=== PATIENT | male | born 1940 | race Caucasian/White ===

== ENCOUNTER → 2018-09-01 | Outpatient (CLI) | payer MEDICARE, BC ==
[~2018-09-01] MED LIST: ASPI-496 PO; ATOR10TA PO; OXYC1TAB8 PO; PANT40TA3 PO; POTA15TA9 PO; TERA10CA3 PO
[2018-09-01 12:11] LABS: BASOPHILS # (AUTO) 0.04 x10^3/uL (0-0.1); BASOPHILS % (AUTO) 0 % (0-1); EOSINOPHILS # (AUTO) 0.15 x10^3/uL (0-0.4); EOSINOPHILS % (AUTO) 2 % (1-7); LYMPHOCYTES # (AUTO) 0.98 x10^3/uL (1-3.4); LYMPHOCYTES % (AUTO) 12 % (22-44); MD NO; MEAN CORPUSCULAR HEMOGLOBIN 31.1 pg (27.5-34.5); MEAN CORPUSCULAR HGB CONC 34.1 g/dL (33.2-36.2); MEAN PLATELET VOLUME 10.1 fL (7.4-10.4); MONOCYTES # (AUTO) 0.61 x10^3/uL (0.2-0.8); MONOCYTES % (AUTO) 7 % (2-9); NEUTROPHILS # (AUTO) 6.54 x10^3/uL (1.8-6.8); NEUTROPHILS % (AUTO) 79 % (42-75); PLATELET COUNT 180 x10^3/uL (130-400); RED BLOOD COUNT 4.78 x10^6/uL (4.38-5.82); RED CELL DISTRIBUTION WIDTH 14.8 % (9.4-14.8)
== END | disposition home or self-care (01) ==
LOC: STAR 10:58
PROVIDERS: ATTEND Orthopaedic Surgery
DX: Z01.818 Encounter for other preprocedural examination (principal); M17.11 Unilateral primary osteoarthritis, right knee; M25.561 Pain in right knee
CPT/HCPCS: 36415; 85025; 87081

== ENCOUNTER 2018-09-12 05:45 | Inpatient (IN) | payer MEDICARE, BC ==
[~2018-09-12] VITALS: Ht 177.8 cm; Wt 111.0 kg
[2018-09-12] MEDS ORDERED: SUCCINYLCHOLINE 20 MG/ML, 10ML ONE (06:23)
[2018-09-12] MEDS ORDERED: MIDAZOLAM 1 MG/ML, 2ML ONE (06:23)
[2018-09-12] MEDS ORDERED: FENTANYL PF 100 MCG/2ML ONE ×2 (06:23→07:34)
[2018-09-12] MEDS ORDERED: LIDOCAINE-MPF 2% ,5ML ONE (06:24)
[2018-09-12] MEDS ORDERED: DEXAMETHASONE 4 MG/ML, 5ML ONE (06:24)
[2018-09-12] MEDS ORDERED: BUPIVACAINE/PF 0.5% ONE (06:24)
[2018-09-12] MEDS ORDERED: EPINEPHRINE 1 MG/ML, 1ML ONE ×2 (06:24→06:54)
[2018-09-12] MEDS ORDERED: ONDANSETRON 2MG/ML, 2ML ONE (06:24)
[2018-09-12] MEDS ORDERED: SODIUM CHLORIDE 0.9% PF 10ML ONE (06:24)
[2018-09-12] MEDS ORDERED: CEFAZOLIN 1,000 MG ONE ×2 (06:24)
[2018-09-12 06:35] VITALS: BP 136/81
[2018-09-12] MEDS: LACTATED RINGERS 1,000 ML IV SCH ×2 (06:38→14:02)
[2018-09-12] MEDS ORDERED: ROPIvacaine/PF 0.2%, 20 ML ONE (06:53)
[2018-09-12] MEDS ORDERED: TRANEXAMIC ACID 100 MG/ML, 10ML ONE (06:53)
[2018-09-12] MEDS ORDERED: KETOROLAC 60 MG/2 ML ONE (06:53)
[2018-09-12] MEDS ORDERED: SODIUM CHLORIDE 0.9% 100 ML ONE (06:54)
[2018-09-12] MEDS ORDERED: VANCOMYCIN 1,000 MG ONE (06:54)
[2018-09-12] MEDS ORDERED: ACETAMINOPHEN 500 MG TABLET PO ONE (07:00)
[2018-09-12] MEDS ORDERED: ONDANSETRON ODT 8 MG PO ONE (07:00)
[2018-09-12] MEDS ORDERED: PROPOFOL 10 MG/ML, 20ML ONE (07:10)
[2018-09-12] MEDS ORDERED: OXYcodone 5 MG/5 ML ORAL.SOL UDC PO PRN (07:30)
[2018-09-12] MEDS ORDERED: LABETALOL 5MG/ML, 20ML IV PRN (07:30)
[2018-09-12] MEDS ORDERED: hydrALAzine 20 MG/ML, 1ML IV PRN (07:30)
[2018-09-12] MEDS ORDERED: LORazepam 2 MG/ML, 1ML IVPush PRN (07:30)
[2018-09-12] MEDS ORDERED: FENTANYL PF 100 MCG/2ML IV PRN (07:30)
[2018-09-12] MEDS ORDERED: METOCLOPRAMIDE 5 MG/ML, 2ML IV PRN (07:30)
[2018-09-12] MEDS: D5%-0.45% NACL 1,000 ML IV SCH ×2 (08:39→16:28)
[2018-09-12] MEDS ORDERED: HYDROmorphone 1 MG/ML, 1ML AMP ONE ×2 (08:41→09:07)
[2018-09-12] MEDS: HYDROmorphone 2 MG/ML, 1ML IVPush PRN ×5 (08:45→09:25)
[2018-09-12] MEDS ORDERED: OXYcodone 5 MG/5 ML ORAL.SOL UDC ONE (08:52)
[2018-09-12] MEDS ORDERED: ZOLPIDEM 5MG TABLET PO PRN (09:00)
[2018-09-12] MEDS: DOCUSATE 100 MG CAPSULE PO SCH ×2 (09:00→22:28)
[2018-09-12] MEDS ORDERED: PROMETHAZINE 25 MG/ML, 1ML IM PRN (09:00)
[2018-09-12] MEDS ORDERED: BISACODYL 10 MG SUPP PR PRN (09:00)
[2018-09-12] MEDS ORDERED: ONDANSETRON 2MG/ML, 2ML IV PRN (09:00)
[2018-09-12] MEDS: MULTIVITAMINS/MINERALS TABLET PO SCH (09:00)
[2018-09-12] MEDS ORDERED: MAGNESIUM HYDROXIDE 8%, 30ML UDC PO PRN (09:00)
[2018-09-12] MEDS ORDERED: DIAZEPAM 5 MG TABLET PO PRN (09:00)
[2018-09-12] MEDS ORDERED: DIPHENHYDRAMINE 50 MG CAPSULE PO PRN (09:00)
[2018-09-12] MEDS ORDERED: ALUMINUM/MAG/SIMETHICONE 30 ML UDC PO PRN (09:00)
[2018-09-12] MEDS: POTASSIUM CITRATE 15 MEQ PO SCH ×2 (09:00→21:00)
[2018-09-12] MEDS ORDERED: SENNA/DOCUSATE TABLET PO PRN (09:00)
[2018-09-12] MEDS ORDERED: ONDANSETRON 4 MG TABLET PO PRN (09:00)
[2018-09-12] MEDS: ACETAMINOPHEN 650 MG/20.3 ML UDC PO SCH ×3 (09:00→21:00)
[2018-09-12] MEDS: PANTOPROZOLE 40MG TABLET PO SCH (09:00)
[2018-09-12] MEDS ORDERED: PROMETHAZINE 12.5 MG SUPP PR PRN (09:00)
[2018-09-12] MEDS ORDERED: HYDROmorphone 1 MG/ML, 1ML AMP IV PRN (09:00)
[2018-09-12] MEDS ORDERED: OXYcodone IR 5MG TABLET PO PRN (09:00)
[2018-09-12] MEDS ORDERED: TRANEXAMIC ACID 1,000 MG in SODIUM CHLORIDE 0.9% 100 ML IVPB ONE (09:15)
[2018-09-12 09:50] VITALS: BP 113/64
[2018-09-12 12:35] VITALS: BP 121/57
[2018-09-12] MEDS: CEFAZOLIN PMX 2GM/50ML 50 ML IVPB SCH ×2 (15:04→22:28)
[2018-09-12] MEDS: OXYcodone/APAP 5/325MG TABLET PO PRN ×2 (18:25→22:33)
[2018-09-12] MEDS: ASPIRIN 81 MG TABLET EC PO SCH (18:29)
[2018-09-12 20:02] VITALS: BP 121/65
[2018-09-12] MEDS ORDERED: ATORVASTATIN 10 MG TABLET PO SCH (21:00)
[2018-09-12] MEDS ORDERED: TERAZOSIN 5MG CAPSULE PO SCH (21:00)
[2018-09-13] MEDS: D5%-0.45% NACL 1,000 ML IV SCH (00:54)
[2018-09-13] MEDS: OXYcodone/APAP 5/325MG TABLET PO PRN ×3 (02:44→10:38)
[2018-09-13] MEDS: ACETAMINOPHEN 650 MG/20.3 ML UDC PO SCH ×2 (02:52→09:00)
[2018-09-13 02:57] VITALS: BP 93/49
[2018-09-13] MEDS ORDERED: DEXAMETHASONE 4 MG/ML, 1ML IVPush SCH (06:00)
[2018-09-13] MEDS: ASPIRIN 81 MG TABLET EC PO SCH (06:10)
[2018-09-13 08:30] VITALS: BP 107/63
[2018-09-13] MEDS ORDERED: KETOROLAC 30 MG/1 ML IV SCH (09:00)
[2018-09-13] MEDS: DOCUSATE 100 MG CAPSULE PO SCH (09:21)
[2018-09-13] MEDS: MULTIVITAMINS/MINERALS TABLET PO SCH (09:21)
[2018-09-13] MEDS: PANTOPROZOLE 40MG TABLET PO SCH (09:21)
[2018-09-13] MEDS ORDERED: OXYC-306 PO (10:42)
== END 2018-09-13 11:20 | disposition home or self-care (01) | DRG 469 ==
LOC: OUT 05:45 → ORIP 08:39 → 4NOR 09:51 → DCLOUNGE 09-13 10:57
PROVIDERS: ADMIT Orthopaedic Surgery; ATTEND Orthopaedic Surgery
PROC: 3E0T3BZ Introduction of Anesthetic Agent into Peripheral Nerves and Plexi, Percutaneous Approach (ICD-10-PCS; 2018-09-12)
PROC: 0SRC0J9 Replacement of Right Knee Joint with Synthetic Substitute, Cemented, Open Approach (ICD-10-PCS; principal; 2018-09-12 07:30)
DX: M17.11 Unilateral primary osteoarthritis, right knee (principal); R53.2 Functional quadriplegia; E78.5 Hyperlipidemia, unspecified; K21.9 Gastro-esophageal reflux disease without esophagitis; N40.0 Benign prostatic hyperplasia without lower urinary tract symptoms; Z88.5 Allergy status to narcotic agent; Z88.8 Allergy status to other drugs, medicaments and biological substances; Z91.048 Other nonmedicinal substance allergy status
CPT/HCPCS: 36415; 85014; 85018; C1713; G0378; J0171; J0690; J1100; J1170; J1885; J2250; J2405; J2704; J2795; J3010; J3370; J3490; Q0162; C1776; J0330; J7120